=== PATIENT | female | born 1975 | race Caucasian/White ===

== ENCOUNTER 2020-05-19 08:17 | Inpatient (IN) | payer OTHER ==
[~2020-05-19] VITALS: Ht 162.6 cm; Wt 90.7 kg
[~2020-05-19 08:17] MED LIST: ASPI81CH PO; AZIT500 PO; AZO; Bactrim Ds Tab1 EACH PO; CIPR500 PO; CLOP75 PO; DAYQUIL; HYDACE5325 PO; IBUP400; IBUP800 PO; LISI5 PO; METO25 PO; MULVITMINE PO; PHENA200 PO; PROP10 PO; RXHYDACE PO; SIMV40 PO; SULTRIDS PO
[2020-05-19 09:35] LABS: Source, Urine Clean Catch
[2020-05-19 09:43] LABS: BASOPHILS ABSOLUTE AUTO 0.04 K/mm3 (0.00-0.23); BASOPHILS PERCENT AUTO 0 % (0-2); EOSINOPHILS ABSOLUTE AUTO 0.09 K/mm3 (0.00-0.68); EOSINOPHILS PERCENT AUTO 1 % (0-6); Hematocrit 47.8 % (33.0-51.0); Hemoglobin 15.8 g/dL (11.5-16.0); IMMATURE GRAN ABSOLUTE AUTO 0.02 K/mm3 (0.00-0.10); IMMATURE GRAN PERCENT AUTO 0 % (0-1); LYMPHOCYTES ABSOLUTE AUTO 1.08 K/mm3 (0.84-5.20); LYMPHOCYTES PERCENT AUTO 11 % (21-46); MONOCYTES ABSOLUTE AUTO 0.45 K/mm3 (0.16-1.47); MONOCYTES PERCENT AUTO 4 % (4-13); Mean Corpuscular HGB Conc 33.1 g/dL (31.5-36.5); Mean Corpuscular Volume 88 fL (80-100); Mean Platelet Volume 10.4 fL (9.1-12.4); NEUTROPHILS ABSOLUTE AUTO 8.53 K/mm3 (1.96-9.15); NEUTROPHILS PERCENT AUTO 84 % (41-73); Platelet Count 214 K/mm3 (150-400); RDW Coefficient Variation 14.3 % (11.7-14.2); RDW Standard Deviation 45.2 fL (35.1-46.3); Red Blood Cell Count 5.44 M/mm3 (3.80-5.20); White Blood Cell Count 10.21 K/mm3 (4.00-11.30)
[2020-05-19 09:43] LABS: Bilirubin, Urine Neg (Neg); Blood, Urine 4+ (Neg); Glucose Qualitative, Urine Neg (Neg); Ketones, Urine Neg (Neg); Leukocyte Esterase, Urine 3+ (Neg); Nitrite, Urine Pos (Neg); Protein, Urine 3+ (Neg); Specific Gravity, Urine 1.015 (1.003-1.022); Urobilinogen, Urine 1+ (Normal)
[2020-05-19 09:56] LABS: Appearance, Urine Cloudy (Clear); Color, Urine Yellow (P-Yellow)
[2020-05-19 10:01] LABS: Alanine Aminotransfer (ALT/SGP 46 U/L (12-78); Albumin/Globulin Ratio 0.6 (0.8-1.8); Alk Phos 144 U/L (50-136); Anion Gap 4 mmol/L (6-16); Aspartate Aminotrans (AST/SGOT 28 U/L (12-37); Bilirubin, Total 0.8 mg/dL (0.1-1.0); Blood Urea Nitrogen 11 mg/dL (8-24); Bun/Creatinine Ratio 14.4 (12.0-20.0); CO2, Blood 27 mmol/L (21-32); Calcium, Blood 8.5 mg/dL (8.5-10.1); Chloride, Blood 104 mmol/L (98-108); Creatinine, Blood 0.76 mg/dL (0.40-1.00); Globulin, Blood 4.8 g/dL (2.2-4.0); Glomerular Filtration Rate >60 (60-); Glucose, Blood 115 mg/dL (70-99); Potassium, Blood 3.4 mmol/L (3.5-5.5); Sodium, Blood 135 mmol/L (136-145); Total Protein, Blood 7.8 g/dL (6.4-8.2)
[2020-05-19 10:04] LABS: White Blood Cells, Urine 50-100 /hpf (0-5)
[2020-05-19 10:08] LABS: Bacteria Many /hpf; Squamous Epithelial Cells Few /hpf (Few)
--- NOTE | 2020-05-19 18:23 | NUR ---
SHIFT SUMMARY PATIENT ARRIVED TO THE FLOOR MID-AFTERNOON. PATIENT REPORTS LESSENING OF HER HEADACHE UPON ADMISSION. PATIENT REPORTS SHE IS NOT HAVING PAIN IN HER BACK/KIDNEYS AT THIS TIME. PATIENT BP AND TEMPERATURE WITHIN NORMAL LIMITS AFTER ADMISSION. PATIENT A/O, INDEPENDENT IN THE ROOM. PATIENT ORIENTED TO THE ROOM AND ADMISSION COMPLETED. PATIENT NAPPED THROUGH THE AFTERNOON. PATIENT CURRENTLY SITTING UP EATING DINNER.
[2020-05-20 05:14] LABS: BASOPHILS ABSOLUTE AUTO 0.03 K/mm3 (0.00-0.23); BASOPHILS PERCENT AUTO 0 % (0-2); EOSINOPHILS PERCENT AUTO 2 % (0-6); Hematocrit 39.5 % (33.0-51.0); Hemoglobin 12.6 g/dL (11.5-16.0); IMMATURE GRAN ABSOLUTE AUTO 0.02 K/mm3 (0.00-0.10); IMMATURE GRAN PERCENT AUTO 0 % (0-1); LYMPHOCYTES ABSOLUTE AUTO 1.23 K/mm3 (0.84-5.20); LYMPHOCYTES PERCENT AUTO 14 % (21-46); MONOCYTES ABSOLUTE AUTO 0.65 K/mm3 (0.16-1.47); MONOCYTES PERCENT AUTO 7 % (4-13); Mean Corpuscular HGB 28.3 pg (26.0-34.0); Mean Corpuscular HGB Conc 31.9 g/dL (31.5-36.5); Mean Corpuscular Volume 89 fL (80-100); Mean Platelet Volume 10.9 fL (9.1-12.4); NEUTROPHILS ABSOLUTE AUTO 6.64 K/mm3 (1.96-9.15); NEUTROPHILS PERCENT AUTO 76 % (41-73); Platelet Count 177 K/mm3 (150-400); RDW Coefficient Variation 14.3 % (11.7-14.2); RDW Standard Deviation 46.5 fL (35.1-46.3); Red Blood Cell Count 4.46 M/mm3 (3.80-5.20); White Blood Cell Count 8.77 K/mm3 (4.00-11.30)
[2020-05-20 05:36] LABS: Anion Gap 7 mmol/L (6-16); Blood Urea Nitrogen 15 mg/dL (8-24); Bun/Creatinine Ratio 18.2 (12.0-20.0); CO2, Blood 25 mmol/L (21-32); Calcium, Blood 8.5 mg/dL (8.5-10.1); Chloride, Blood 108 mmol/L (98-108); Creatinine, Blood 0.83 mg/dL (0.40-1.00); Glomerular Filtration Rate >60 (60-); Glucose, Blood 147 mg/dL (70-99); Potassium, Blood 3.3 mmol/L (3.5-5.5); Sodium, Blood 140 mmol/L (136-145)
--- NOTE | 2020-05-20 07:37 | NUR ---
called dr young and informed of bp 174/111 and hr 111. he ordered po metoprolol. tm
--- NOTE | 2020-05-20 07:49 | NUR ---
05/20/20 0545 PT SLEPT ON AND OFF. MEDICATED FOR FLANK AND HEAD DISCOMFORT EARLIER. HEART MONITOR SHOWS ST IN THE LOW 100'S. BP ELEVATED SINCE ADMIT AND RN INFORMED CORPORATE DEVELOPMENT ASSOCIATE MD. NEW ANTI-HYPERTENSIVE MED STARTED. BLOOD CULTURES POSITIVE AND MD NOTIFIED WELL. SEE ORDERS FOR IV ANTIBIOTIC. SEE MAR FOR MEDS GIVEN.
--- NOTE | 2020-05-20 15:02 | NUR ---
ATTEMPTED TO CALL DR MARCANO REGARDING PT'S BP, LEFT MESSAGE FOR HIM TO CALL ME
--- NOTE | 2020-05-20 18:20 | NUR ---
CALLED DR MARCANO OF BP OF 175/115 AND TEMP OF 100.5. HE WANTS TO HOLD OFF ON ADDING MORE BP MEDS AT THE MOMENT AND JUST MONITOR
--- NOTE | 2020-05-20 18:30 | NUR ---
SHIFT SUMMARY SHYAM COMPLAINED OF A HEADACHE AND GOT TYLENOL. LOW GRADE FEVER OF 100.5 AND HIGH BP OF 175-[address] MARCANO AWARE, BP MEDS ADDED (SEE PREVIOUS NOTE). VISITED. INDEP TO BR, URINE CLOUDY. CALL LIGHT IN REACH, WCTM
[2020-05-21 05:40] LABS: BASOPHILS ABSOLUTE AUTO 0.04 K/mm3 (0.00-0.23); BASOPHILS PERCENT AUTO 1 % (0-2); EOSINOPHILS ABSOLUTE AUTO 0.21 K/mm3 (0.00-0.68); EOSINOPHILS PERCENT AUTO 2 % (0-6); Hematocrit 36.9 % (33.0-51.0); Hemoglobin 12.1 g/dL (11.5-16.0); IMMATURE GRAN ABSOLUTE AUTO 0.03 K/mm3 (0.00-0.10); IMMATURE GRAN PERCENT AUTO 0 % (0-1); LYMPHOCYTES ABSOLUTE AUTO 1.84 K/mm3 (0.84-5.20); LYMPHOCYTES PERCENT AUTO 21 % (21-46); MONOCYTES ABSOLUTE AUTO 0.67 K/mm3 (0.16-1.47); MONOCYTES PERCENT AUTO 8 % (4-13); Mean Corpuscular HGB 28.5 pg (26.0-34.0); Mean Corpuscular HGB Conc 32.8 g/dL (31.5-36.5); Mean Corpuscular Volume 87 fL (80-100); Mean Platelet Volume 11.3 fL (9.1-12.4); NEUTROPHILS ABSOLUTE AUTO 5.96 K/mm3 (1.96-9.15); NEUTROPHILS PERCENT AUTO 68 % (41-73); Platelet Count 205 K/mm3 (150-400); RDW Coefficient Variation 14.5 % (11.7-14.2); RDW Standard Deviation 46.6 fL (35.1-46.3); Red Blood Cell Count 4.24 M/mm3 (3.80-5.20); White Blood Cell Count 8.75 K/mm3 (4.00-11.30)
[2020-05-21 06:23] LABS: Anion Gap 10 mmol/L (6-16); Blood Urea Nitrogen 16 mg/dL (8-24); Bun/Creatinine Ratio 20.6 (12.0-20.0); CO2, Blood 23 mmol/L (21-32); Calcium, Blood 7.9 mg/dL (8.5-10.1); Chloride, Blood 106 mmol/L (98-108); Creatinine, Blood 0.78 mg/dL (0.40-1.00); Glomerular Filtration Rate >60 (60-); Glucose, Blood 137 mg/dL (70-99); Potassium, Blood 3.3 mmol/L (3.5-5.5); Sodium, Blood 139 mmol/L (136-145)
--- NOTE | 2020-05-21 07:33 | NUR ---
05/21/20 0645 PT SLEPT BETTER AFTER SLEEPER MED WAS ORDERED. PT STILL HAVING ELEVATED BP. GENERALLY SHE IS "FEELING BETTER" THAN WHEN ADMITTED. IV ANTIBIOTICS IN EFFECT.
--- NOTE | 2020-05-21 17:44 | NUR ---
SPOKE TO DR MARCANO ABOUT SPB AT 184, HE WANTS TO JUST [id number] IT FOR NOW
--- NOTE | 2020-05-21 19:10 | NUR ---
SHIFT SUMMARY SHYAM DENIED PAIN THIS SHIFT. BP HIGH, DR MARCANO AWARE (SEE PREVIOUS NOTE). INDEP IN ROOM. NO COMPLAINTS, CALL LIGHT IN REACH, WCTM
[2020-05-22 06:14] LABS: Anion Gap 8 mmol/L (6-16); Blood Urea Nitrogen 21 mg/dL (8-24); Bun/Creatinine Ratio 25.6 (12.0-20.0); CO2, Blood 27 mmol/L (21-32); Calcium, Blood 8.7 mg/dL (8.5-10.1); Chloride, Blood 108 mmol/L (98-108); Creatinine, Blood 0.82 mg/dL (0.40-1.00); Glomerular Filtration Rate >60 (60-); Glucose, Blood 166 mg/dL (70-99); Potassium, Blood 3.7 mmol/L (3.5-5.5); Sodium, Blood 143 mmol/L (136-145)
--- NOTE | 2020-05-22 06:38 | NUR ---
SHIFT SUMMARY: BP 156/94, AND 168/99. PT DENIES PAIN. NO CP, NO SOB. INDEPENDENT IN ROOM. NO DYSURIA. AFEB. A/OX4. COMMUNICATES NEEDS. NO ACUTE CHANGES OVERNIGHT. WCTM.
[2020-05-22] MEDS ORDERED: LISI20 PO (08:50)
[2020-05-22] MEDS ORDERED: VISBIOME 112.51 EACH PO (08:50)
[2020-05-22] MEDS ORDERED: METO50ER PO (08:51)
[2020-05-22] MEDS ORDERED: CEFU500T30 PO (08:51)
[2020-05-22] MEDS ORDERED: HYDCHL12.5 PO (08:51)
--- NOTE | 2020-05-22 09:16 | NUR ---
DC INSTRUCTIONS REVIEWED WITH PT- PT VERB UNDERSTANING OF DC INSTRUCTIONS, FOLLOW UP, AND MEDS. NEW RX FAXED TO [facility]. PT WAITING FOR TO ARRIVE FOR RIDE HOME.
--- NOTE | 2020-05-22 09:45 | NUR ---
DISCHARGE NOTE PT IS AOX4. ARRIVED TO PICK PT UP IN PERSONAL VEHICLE. DC INSTRUCTIONS AND MEDICATIONS REVIEWED WITH PT BY SCREENING TECHNICIAN AND PT VERBALIZED UNDERSTANDING. PT IV REMOVED BY SCREENING TECHNICIAN. PT DRESSED SELF IN HOME CLOTHING. PT WALKED OFF THE UNIT WITH EARTH MOVING TECHNICIAN AT APPROXIMATELY 0930 WITH EARTH MOVING TECHNICIAN AND HAS LEFT THE BUILDING WITH BELONGINGS IN PLACE.
== END 2020-05-22 09:41 | disposition home or self-care (01) | DRG 872 ==
LOC: ER 08:17 → MEDS 11:35
PROVIDERS: Emergency Medicine; Internal Medicine; ADMIT Family Medicine
DX: A41.51 Sepsis due to Escherichia coli [E. coli] (principal); E87.1 Hypo-osmolality and hyponatremia; N10 Acute pyelonephritis; E66.01 Morbid (severe) obesity due to excess calories; E87.6 Hypokalemia; F17.210 Nicotine dependence, cigarettes, uncomplicated; I10 Essential (primary) hypertension; I25.10 Atherosclerotic heart disease of native coronary artery without angina pectoris; N20.0 Calculus of kidney; Z95.5 Presence of coronary angioplasty implant and graft; Z20.822 Contact with and (suspected) exposure to COVID-19; Z68.34 Body mass index [BMI] 34.0-34.9, adult; Z91.14 Patient's other noncompliance with medication regimen
CPT/HCPCS: 36415; 71045; 74176; 80048; 80053; 81001; 83605; 85025; 87040; 87077; 87086; 87186; 93005; 93010; 96361; 96365; 96375; 99285-25; A9270; J0696; J1650; J1885; J2405; J3010; J7030; J7050; J7120; Q2038

== ENCOUNTER 2020-11-12 19:00 | Observation (INO) | payer OTHER ==
[~2020-11-12] VITALS: Ht 165.1 cm; Wt 90.7 kg
[~2020-11-12 19:00] MED LIST changes: +CEFU500T30 PO; +HYDCHL12.5 PO; +LISI20 PO; +METO50ER PO; +VISBIOME 112.51 EACH PO
[2020-11-12 19:25] LABS: BASOPHILS ABSOLUTE AUTO 0.05 K/mm3 (0.00-0.23); BASOPHILS PERCENT AUTO 0 % (0-2); EOSINOPHILS ABSOLUTE AUTO 0.21 K/mm3 (0.00-0.68); EOSINOPHILS PERCENT AUTO 1 % (0-6); Hemoglobin 14.3 g/dL (11.5-16.0); IMMATURE GRAN ABSOLUTE AUTO 0.06 K/mm3 (0.00-0.10); IMMATURE GRAN PERCENT AUTO 0 % (0-1); LYMPHOCYTES ABSOLUTE AUTO 2.01 K/mm3 (0.84-5.20); LYMPHOCYTES PERCENT AUTO 12 % (21-46); MONOCYTES ABSOLUTE AUTO 0.84 K/mm3 (0.16-1.47); MONOCYTES PERCENT AUTO 5 % (4-13); Mean Corpuscular HGB 29.2 pg (26.0-34.0); Mean Corpuscular HGB Conc 33.3 g/dL (31.5-36.5); Mean Corpuscular Volume 88 fL (80-100); Mean Platelet Volume 10.2 fL (9.1-12.4); NEUTROPHILS ABSOLUTE AUTO 13.17 K/mm3 (1.96-9.15); NEUTROPHILS PERCENT AUTO 81 % (41-73); Platelet Count 351 K/mm3 (150-400); RDW Standard Deviation 48.3 fL (35.1-46.3); White Blood Cell Count 16.34 K/mm3 (4.00-11.30)
[2020-11-12 20:00] LABS: Alanine Aminotransfer (ALT/SGP 38 U/L (12-78); Albumin, Blood 3.2 g/dL (3.4-5.0); Albumin/Globulin Ratio 0.8 (0.8-1.8); Alk Phos 102 U/L (50-136); Anion Gap 3 mmol/L (6-16); Aspartate Aminotrans (AST/SGOT 31 U/L (12-37); Bilirubin, Total 0.5 mg/dL (0.1-1.0); Blood Urea Nitrogen 15 mg/dL (8-24); Bun/Creatinine Ratio 17.3 (12.0-20.0); CO2, Blood 28 mmol/L (21-32); Calcium, Blood 8.7 mg/dL (8.5-10.1); Chloride, Blood 108 mmol/L (98-108); Creatinine, Blood 0.87 mg/dL (0.40-1.00); Glomerular Filtration Rate >60 (60-); Glucose, Blood 130 mg/dL (70-99); Potassium, Blood 3.7 mmol/L (3.5-5.5); Sodium, Blood 139 mmol/L (136-145); Total Protein, Blood 7.2 g/dL (6.4-8.2)
[2020-11-12 21:30] LABS: CHOL/HDL RATIO 3.3; Cholesterol 175 mg/dL (50-200); HDL Cholesterol 53 mg/dL (>39); Low Density Lipoprotein Chol 107 mg/dL (0-110); Triglycerides 77 mg/dL (30-160); Very Low Density Lipoprot Chol 15 mg/dL (6-32)
[2020-11-13 07:34] LABS: BASOPHILS ABSOLUTE AUTO 0.05 K/mm3 (0.00-0.23); BASOPHILS PERCENT AUTO 0 % (0-2); EOSINOPHILS ABSOLUTE AUTO 0.16 K/mm3 (0.00-0.68); EOSINOPHILS PERCENT AUTO 1 % (0-6); Hematocrit 40.5 % (33.0-51.0); Hemoglobin 13.3 g/dL (11.5-16.0); IMMATURE GRAN ABSOLUTE AUTO 0.02 K/mm3 (0.00-0.10); IMMATURE GRAN PERCENT AUTO 0 % (0-1); LYMPHOCYTES ABSOLUTE AUTO 1.86 K/mm3 (0.84-5.20); LYMPHOCYTES PERCENT AUTO 16 % (21-46); MONOCYTES ABSOLUTE AUTO 0.71 K/mm3 (0.16-1.47); MONOCYTES PERCENT AUTO 6 % (4-13); Mean Corpuscular HGB 29.1 pg (26.0-34.0); Mean Corpuscular HGB Conc 32.8 g/dL (31.5-36.5); Mean Corpuscular Volume 89 fL (80-100); Mean Platelet Volume 10.3 fL (9.1-12.4); NEUTROPHILS ABSOLUTE AUTO 8.56 K/mm3 (1.96-9.15); NEUTROPHILS PERCENT AUTO 75 % (41-73); Platelet Count 313 K/mm3 (150-400); RDW Standard Deviation 49.1 fL (35.1-46.3); Red Blood Cell Count 4.57 M/mm3 (3.80-5.20); White Blood Cell Count 11.36 K/mm3 (4.00-11.30)
[2020-11-13 07:53] LABS: Anion Gap 6 mmol/L (6-16); Blood Urea Nitrogen 14 mg/dL (8-24); Bun/Creatinine Ratio 19.3 (12.0-20.0); CO2, Blood 24 mmol/L (21-32); Calcium, Blood 8.1 mg/dL (8.5-10.1); Chloride, Blood 109 mmol/L (98-108); Creatinine, Blood 0.73 mg/dL (0.40-1.00); Glomerular Filtration Rate >60 (60-); Glucose, Blood 102 mg/dL (70-99); Potassium, Blood 3.4 mmol/L (3.5-5.5); Sodium, Blood 139 mmol/L (136-145)
--- NOTE | 2020-11-13 13:57 | NUR ---
PT ARRIVED TO UNIT FROM ED TRANSFERRED INDEPENDENTLY TO BED FROM [facility]. DENIED PAIN, SOB OR N/V. TELE PLACED, READING SR. ADMIT ASSESSMENT COMPLETED. CALL LIGHT IN REACH.
--- NOTE | 2020-11-13 18:02 | NUR ---
SUMMARY NO ACUTE CHANGES SINCE ARRIVING TO FLOOR. INDEPENDENT IN ROOM. PT HAS DENIED CP, N/V OR SOB SINCE ARRIVAL TO UNIT. TELE IN PLACE. ADMINISTERED MEDS PER ORDERS. CALL LIGHT IN REACH. PT PLEASANT AND COOPERATIVE.
[2020-11-13] MEDS ORDERED: LISI20 PO (21:46)
[2020-11-13] MEDS ORDERED: CEFU250T47 PO (21:47)
[2020-11-13] MEDS ORDERED: METO50ER PO (21:48)
[2020-11-13] MEDS ORDERED: HYDCHL25 PO (21:48)
--- NOTE | 2020-11-14 05:21 | NUR ---
SHIFT SUMMARY ASSUMED CARE OF PT AT 1900. PT IS A/OX4. HEART SOUNDS REGULAR, TELE SHOWS SINUS RYTHMN. LUNG SOUNDS CLEAR. PT BLOOD PRESSURE IS STABLE T/O THE NIGHT. PT HAS NO NEW COMPLAINTS. CALL LIGHT IN REACH, BED IN LOWEST POSTION.
--- NOTE | 2020-11-14 09:22 | NUR ---
PT ALERT AND ORIENTED X4. ON ROOM AIR SATING ABOVE 94%. DENIES SOB. LUNGS SOUNDING CLEAR. TELE SHOWING SINUS WITH HR 80'S. BP STABLE. BOWEL TONES PRESENT. PPP. DENIES PAIN. ANXIOUS TO GET HOME. TAKING PILLS WHOLE WITH WATER. ATE A GOOD BREAKFAST. DENIES NEEDS AT THIS TIME. WILL CONTINUE TO MONITOR.
[2020-11-14] MEDS ORDERED: AMLO10 PO (10:52)
[2020-11-14] MEDS ORDERED: ASPI81CH PO (10:53)
[2020-11-14] MEDS ORDERED: POTA10T PO (11:13)
--- NOTE | 2020-11-14 11:40 | NUR ---
DISCHARGE: NO ACUTE CHANGES. VITAL SIGNS STABLE. DISCHARGE INSTRUCTIONS REVIEWED, QUESTIONS ANSWERED, AND MEDICATIONS CALLED INTO [facility] IN [place]. DISCHARGE WNL. IV TAKEN OUT PER PROTOCOL. IN TO ASSOCIATE PROFESSOR OF MATHEMATICS PATIENT. PT HAS ALL PERSONAL BELONGINGS.
== END 2020-11-14 11:45 | disposition home or self-care (01) ==
LOC: ER 19:00 → PCU 19:01 → ER 21:31 → ERHOLD 21:31 → PCU 21:51 → ERHOLD 21:51 → PCU 11-13 12:34 → ERHOLD 11-13 12:34 → PCU 11-13 17:00
PROVIDERS: Physician Assistant; ADMIT Family Medicine
DX: I16.1 Hypertensive emergency (principal); I16.0 Hypertensive urgency; R07.9 Chest pain, unspecified; R79.89 Other specified abnormal findings of blood chemistry; I25.2 Old myocardial infarction; F17.210 Nicotine dependence, cigarettes, uncomplicated; R00.0 Tachycardia, unspecified; I25.10 Atherosclerotic heart disease of native coronary artery without angina pectoris; D72.829 Elevated white blood cell count, unspecified; R79.1 Abnormal coagulation profile; E87.6 Hypokalemia; I34.0 Nonrheumatic mitral (valve) insufficiency; I11.0 Hypertensive heart disease with heart failure; I50.32 Chronic diastolic (congestive) heart failure; F31.9 Bipolar disorder, unspecified; E66.9 Obesity, unspecified; J43.9 Emphysema, unspecified; Z88.0 Allergy status to penicillin; Z88.1 Allergy status to other antibiotic agents; Z95.5 Presence of coronary angioplasty implant and graft; Z91.14 Patient's other noncompliance with medication regimen
CPT/HCPCS: 36415; 71046; 71260; 80048; 80053; 80061; 83690; 84443; 84484; 85025; 85379; 93005; 93010; 93306; 99285-25; A9270; G0378; Q9967

== ENCOUNTER 2022-03-13 10:03 | Inpatient (IN) | payer OTHER ==
[~2022-03-13] VITALS: Ht 165.1 cm; Wt 99.3 kg
[~2022-03-13 10:03] MED LIST changes: +AMLO10 PO; +CEFU250T47 PO; +HYDCHL25 PO; +POTA10T PO
[2022-03-13 11:05] LABS: BASOPHILS ABSOLUTE AUTO 0.03 K/mm3 (0.00-0.23); BASOPHILS PERCENT AUTO 0 % (0-2); EOSINOPHILS ABSOLUTE AUTO 0.05 K/mm3 (0.00-0.68); EOSINOPHILS PERCENT AUTO 1 % (0-6); Hematocrit 50.3 % (33.0-51.0); Hemoglobin 15.8 g/dL (11.5-16.0); IMMATURE GRAN ABSOLUTE AUTO 0.03 K/mm3 (0.00-0.10); IMMATURE GRAN PERCENT AUTO 0 % (0-1); LYMPHOCYTES PERCENT AUTO 4 % (21-46); MONOCYTES ABSOLUTE AUTO 0.52 K/mm3 (0.16-1.47); MONOCYTES PERCENT AUTO 5 % (4-13); Mean Corpuscular HGB 24.6 pg (26.0-34.0); Mean Corpuscular HGB Conc 31.4 g/dL (31.5-36.5); Mean Corpuscular Volume 79 fL (80-100); NEUTROPHILS ABSOLUTE AUTO 8.96 K/mm3 (1.96-9.15); NEUTROPHILS PERCENT AUTO 90 % (41-73); RDW Coefficient Variation 20.3 % (11.7-14.2); RDW Standard Deviation 55.4 fL (35.1-46.3); Red Blood Cell Count 6.41 M/mm3 (3.80-5.20); White Blood Cell Count 9.99 K/mm3 (4.00-11.30)
[2022-03-13 11:18] LABS: Mean Platelet Volume 10.5 fL (9.1-12.4)
[2022-03-13 11:39] LABS: Platelet Count 236 K/mm3 (150-400)
[2022-03-13 11:47] LABS: Albumin, Blood 3.3 g/dL (3.4-5.0); Albumin/Globulin Ratio 0.7 (0.8-1.8); Bilirubin, Total 1.2 mg/dL (0.1-1.0); Bun/Creatinine Ratio 20.6 (12.0-20.0); Calcium, Blood 8.9 mg/dL (8.5-10.1); Creatinine, Blood 1.02 mg/dL (0.40-1.00); Globulin, Blood 4.7 g/dL (2.2-4.0); Potassium, Blood 4.1 mmol/L (3.5-5.5)
[2022-03-13 12:07] LABS: International Normalized Ratio 1.13; Prothrombin Time Results 11.8 Sec (9.7-11.5)
[2022-03-13 12:08] LABS: Influenza B, PCR NEGATIVE (NEGATIVE); Resp Syncytial Virus, PCR NEGATIVE (NEGATIVE)
[2022-03-13 12:23] LABS: Influenza A, PCR POSITIVE (NEGATIVE); SARS-Cov-2 (COVID-19) PCR, MMC POSITIVE (NEGATIVE)
[2022-03-13 15:01] LABS: PCO2 Arterial 39.8 mmHg (35-45); pH Blood Arterial 7.42 (7.35-7.45)
[2022-03-14 04:45] LABS: Hematocrit 43.5 % (33.0-51.0); Mean Corpuscular HGB 24.9 pg (26.0-34.0); Mean Corpuscular HGB Conc 32.2 g/dL (31.5-36.5); Mean Corpuscular Volume 77 fL (80-100); Platelet Count 214 K/mm3 (150-400); RDW Coefficient Variation 19.8 % (11.7-14.2); RDW Standard Deviation 54.4 fL (35.1-46.3); Red Blood Cell Count 5.63 M/mm3 (3.80-5.20); White Blood Cell Count 6.76 K/mm3 (4.00-11.30)
[2022-03-14 04:47] LABS: Mean Platelet Volume 10.8 fL (9.1-12.4)
[2022-03-14 04:57] LABS: Albumin, Blood 2.9 g/dL (3.4-5.0); Anion Gap 9 mmol/L (6-16); Blood Urea Nitrogen 25 mg/dL (8-24); Bun/Creatinine Ratio 21.2 (12.0-20.0); CO2, Blood 24 mmol/L (21-32); Calcium, Blood 8.5 mg/dL (8.5-10.1); Chloride, Blood 104 mmol/L (98-108); Creatinine, Blood 1.18 mg/dL (0.40-1.00); Glomerular Filtration Rate 58 (60-); Glucose, Blood 122 mg/dL (70-99); Phosphorus, Blood 4.2 mg/dL (2.5-4.9); Potassium, Blood 3.7 mmol/L (3.5-5.5); Sodium, Blood 137 mmol/L (136-145)
--- NOTE | 2022-03-14 05:12 | NUR ---
PT WAS "ACHING AND MISERABLE" THE FIRST HALF OF THE SHIFT, DESATTING FREQUENTLY AND HER HTN WAS DIFFICULT TO CONTROL REQUIRING 2 PRN DOSES OF HYDRALAZINE, SHE REMAINED SR/ST AND WAS AFEBRILE THROUGHOUT SHIFT, SHE EVENTUALLY SLEPT APPROX 3 HRS CONTINUOUSLY AND WOKE UP THIS MORNING IN BETTER SPIRITS AND HUNGRY WELL, HEPARIN GTT WAS INITIATED BY DR LEO AFTER REPORTING INCREASED TROPONIN, 0420 LEVEL IS STILL PENDING AT THIS WRITING, UO WAS ADEQUATE AND PT REMAINED ON 3 LPM NC, PT STILL DYSPNEIC AT REST WITH COARSE, WET LUNG SOUNDS BILATERALLY, CALL LIGHT IN REACH, BED IN LOWEST POSITION, PT DENIES NEEDS AT PRESENT
--- NOTE | 2022-03-14 18:23 | NUR ---
SHIFT SUMMARY: PT LETHARGIC, NAPPING OFTEN T/OUT SHIFT, ORIENTED x4, AFEBRILE. O2 SATS >92% ON 2-4 L/MIN NC. SR/ST ON MONITOR, RATE CURRENTLY 80s-90s, HEPARIN INFUSING PER ORDERS W/NO RATE CHANGE TODAY, PT DENIES CHEST PAIN. ECHO COMPLETED AT BEDSIDE TODAY. PT HAS BEEN INDEPENDENT TO BS, USES CALL LIGHT TO MAKE NEEDS KNOWN. AT THIS TIME, PT RESTING QUIETLY IN ROOM W/CALL LIGHT IN REACH. WILL CONTINUE TO MONITOR AND TREAT ACCORDINGLY UNTIL CHANGE OF SHIFT.
[2022-03-15 04:23] LABS: Hematocrit 40.6 % (33.0-51.0); Hemoglobin 13.1 g/dL (11.5-16.0); Mean Corpuscular HGB Conc 32.3 g/dL (31.5-36.5); Mean Corpuscular Volume 78 fL (80-100); Platelet Count 208 K/mm3 (150-400); RDW Coefficient Variation 19.8 % (11.7-14.2); RDW Standard Deviation 54.9 fL (35.1-46.3); Red Blood Cell Count 5.23 M/mm3 (3.80-5.20); White Blood Cell Count 5.92 K/mm3 (4.00-11.30)
[2022-03-15 04:30] LABS: Mean Platelet Volume 10.3 fL (9.1-12.4)
[2022-03-15 04:40] LABS: Albumin, Blood 2.5 g/dL (3.4-5.0); Anion Gap 7 mmol/L (6-16); Blood Urea Nitrogen 38 mg/dL (8-24); Bun/Creatinine Ratio 30.6 (12.0-20.0); CHOL/HDL RATIO 2.7; CO2, Blood 28 mmol/L (21-32); Chloride, Blood 105 mmol/L (98-108); Cholesterol 97 mg/dL (50-200); Creatinine, Blood 1.24 mg/dL (0.40-1.00); Glomerular Filtration Rate 54 (60-); Glucose, Blood 127 mg/dL (70-99); HDL Cholesterol 36 mg/dL (>39); LDL/HDL RATIO 1.3; Low Density Lipoprotein Chol 46 mg/dL (0-110); Phosphorus, Blood 4.5 mg/dL (2.5-4.9); Potassium, Blood 3.4 mmol/L (3.5-5.5); Sodium, Blood 140 mmol/L (136-145); Triglycerides 77 mg/dL (30-160); Very Low Density Lipoprot Chol 15 mg/dL (6-32)
--- NOTE | 2022-03-15 06:07 | NUR ---
SHIFT SUMMARY PT HAS SOME EPISODES IN NIGHT WHERE CANNULA COMES AWAY FROM HER MOUTH WHILE SHE SLEEPS AND SATS DOWN INTO 80'S. SATS BACK UP TO LOW TO MID 90'S WITH STAFF AT BEDSIDE TO ADJUST CANNULA OR ALERT PT. PT AOX3 ALTHOUGH DROWSY. UP INDEPENDENTLY TO BEDSIDE COMMODE. DYSPNEIC WITH EXERTION. DENIES CP. STATES BREATHING IS FEELING BETTER DESPITE OBSERVED DYSPNEA AND TACHYPNEA. HEPARIN GTT CONTINUES AT 22.2 MLS/HR.
--- NOTE | 2022-03-15 17:25 | NUR ---
SHIFT SUMMARY: PT REPORTS CONTINUED IMPROVEMENT TO SYMPTOMS T/OUT SHIFT, ALSO MORE ALERT TODAY W/ A COUPLE SHORT NAPS. O2 FLOW TITRATED FROM 4L TO 1.5 L/MIN NC, O2 SATS MAINTAINED >92%, OCCASIONAL NONPRODUCTIVE COUGH, PT DENIES SOB. HEPARIN INFUSION DC'd PER ORDERS, SR ON MONITOR W/RATE 70s-80s. PT CONTINUES INDEPENDENT IN ROOM, CALLS APPOPRIATELY. PT RESTING QUIETLY IN ROOM W/DINNER TRAY, CALL LIGHT IN REACH. WILL CONTINUE TO MONITOR AND TREAT ACCORDINGLY UNTIL CHANGE OF SHIFT.
[2022-03-16 05:04] LABS: Albumin, Blood 2.6 g/dL (3.4-5.0); Anion Gap 6 mmol/L (6-16); Blood Urea Nitrogen 39 mg/dL (8-24); Bun/Creatinine Ratio 30.5 (12.0-20.0); CO2, Blood 29 mmol/L (21-32); Calcium, Blood 8.3 mg/dL (8.5-10.1); Chloride, Blood 106 mmol/L (98-108); Creatinine, Blood 1.28 mg/dL (0.40-1.00); Glomerular Filtration Rate 52 (60-); Glucose, Blood 103 mg/dL (70-99); Phosphorus, Blood 4.5 mg/dL (2.5-4.9); Potassium, Blood 3.7 mmol/L (3.5-5.5); Sodium, Blood 141 mmol/L (136-145)
--- NOTE | 2022-03-16 06:43 | NUR ---
PT FREQUENTLY AWAKE THROUGHOUT NOC. OXYGEN WAS TITRATED DOWN TO 1 L/MIN VIA NASAL CANNULA AND PT TOLERATED WELL, SATS MAINTAINING MID 90S OF THIS TIME. SHE IS UP IND IN ROOM AND DOES REPORT DYSPNEA ON EXERTION HOWEVER RECOVERS QUICKLY WITH RETURN TO REST. SHE IS HOPEFUL FOR DISCHARGE TO HOME SOON. NO ACUTE CHANGES THIS SHIFT.
[2022-03-16] MEDS ORDERED: ALBU2.5V5 INH (13:24)
[2022-03-16] MEDS ORDERED: ACET325 PO (13:24)
[2022-03-16] MEDS ORDERED: ATOR10 PO (13:25)
[2022-03-16] MEDS ORDERED: LISI5 PO (13:26)
[2022-03-16] MEDS ORDERED: GUAI600T33 PO (13:26)
[2022-03-16] MEDS ORDERED: METO50ER PO (13:27)
[2022-03-16] MEDS ORDERED: NASAL SPRAY88 ML (13:29)
[2022-03-16] MEDS ORDERED: Ventolin/Prove6.7 GM INH (13:30)
[2022-03-16] MEDS ORDERED: FURO20 PO (13:31)
[2022-03-16] MEDS ORDERED: OSEL75CA PO (13:38)
--- NOTE | 2022-03-16 14:15 | NUR ---
PT A&O X4. PT APPEARS ANXIOUS WHEN CONVERSING AND ABOUT BEINGIN HOSPITAL. STATES THAT SHE NEEDS TO BE HOME FOR HER KIDS AND FOR GETTING THEM TO SCHOOL. PT ABLE TO BE CALMED WITH CONVERSATION AND ENCOURAGEMENT. ALTHOUGH ANXIOUS, PT COOPERATIVE WITH CARE AND PLEASANT. 02 SAT >94% ON RA. DENIES SOB. DENIES CHEST PAIN OR PRESSURE. NO DYSPNEA NOTED BY THIS RN. PT HYPERTENSIVE WITH MORNING VITALS. PROVIDER AWARE AND NEW ORDERS PER EMAR. AFTER MEDICATION ADMINSTRATION, BP STABLE. SEE VS NOTES. NO ACUTE CHANGES THROUGHOUT SHIFT
--- NOTE | 2022-03-16 14:19 | NUR ---
DISCHARGE PT DISCHARGED PER PROVIDER ORDER. DISCHARGE INSTRUCTIONS COMPLETED WITH PT AND SPOUSE AT BEDSIDE. PT AND SPOUSE VERBALIZED UNDERSTANDING. IV REMOVED; SITE WITHOUT REDNESS, SWELLING, PT STATES IT IS MILDLY TENDER FROM BRUISING. PT LEFT WITH , AMBULATING INDEPENDENTLY. HOME O2 EVAL COMPLETED BEFORE DISCHARGE. BELONGINGS SENT WITH PT AND .
== END 2022-03-16 14:10 | disposition home or self-care (01) | DRG 177 ==
LOC: ER 10:03 → ERHOLD 10:04 → PCU 10:04 → ERHOLD 10:04 → PCU 17:45
PROVIDERS: Emergency Medicine; Internal Medicine Hematology & Oncology; ADMIT Internal Medicine
PROC: 8E0ZXY6 Isolation (ICD-10-PCS; principal; 2022-03-13)
DX: U07.1 COVID-19 (principal); I21.A1 Myocardial infarction type 2; I50.33 Acute on chronic diastolic (congestive) heart failure; J96.01 Acute respiratory failure with hypoxia; I11.0 Hypertensive heart disease with heart failure; J10.1 Influenza due to other identified influenza virus with other respiratory manifestations; I27.20 Pulmonary hypertension, unspecified; I16.0 Hypertensive urgency; I25.2 Old myocardial infarction; I25.10 Atherosclerotic heart disease of native coronary artery without angina pectoris; Z95.5 Presence of coronary angioplasty implant and graft; F31.9 Bipolar disorder, unspecified; Z91.14 Patient's other noncompliance with medication regimen; Z98.51 Tubal ligation status; Z98.890 Other specified postprocedural states; Z88.0 Allergy status to penicillin; Z88.1 Allergy status to other antibiotic agents; Z87.891 Personal history of nicotine dependence; E87.6 Hypokalemia; Z28.21 Immunization not carried out because of patient refusal
CPT/HCPCS: 0241U; 36415; 36600; 71045; 71260; 80053; 80061; 80069; 82803; 83605; 83735; 83880; 84145; 84443; 84484; 85025; 85027; 85379; 85520; 85610; 93005; 93010; 93306; 94640; 94660; 94664; 94761; 94762; 96375; 96376; A9270; G0378; J0360; J1644; J1650; J1940; Q9967

== ENCOUNTER → 2022-11-09 | Outpatient (CLI) | payer OTHER ==
[~2022-11-09] MED LIST changes: +ACET325 PO; +ALBU2.5V5 INH; +AMLO5 PO; +ATOR10 PO; +ATOR80 PO; +FURO20 PO; +GUAI600T33 PO; +HYDRA50 PO; +METOPROLOL SUCC25 MG PO; +NASAL SPRAY88 ML; +OSEL75CA PO; +Ventolin/Prove6.7 GM INH
== END ==
LOC: LAB SHORT 08:30 → LAB 08:30
DX: M54.50 Low back pain, unspecified (principal); R82.90 Unspecified abnormal findings in urine
CPT/HCPCS: 87077; 87086; 87186

== ENCOUNTER 2023-03-04 07:31 | Observation (INO) | payer BC, OTHER ==
[2023-03-04] VITALS (8 sets, daily range): BP systolic 108–159; BP diastolic 63–94
[~2023-03-04] VITALS: Ht 162.6 cm; Wt 105.2 kg
[~2023-03-04 07:31] MED LIST changes: +Lopressor 25 mg25 MG PO; -METOPROLOL SUCC25 MG PO
[2023-03-04 08:09] LABS: BASOPHILS ABSOLUTE AUTO 0.05 K/mm3 (0.00-0.23); BASOPHILS PERCENT AUTO 0 % (0-2); EOSINOPHILS ABSOLUTE AUTO 0.11 K/mm3 (0.00-0.68); EOSINOPHILS PERCENT AUTO 1 % (0-6); Hematocrit 51.3 % (33.0-51.0); Hemoglobin 16.3 g/dL (11.5-16.0); IMMATURE GRAN ABSOLUTE AUTO 0.05 K/mm3 (0.00-0.10); IMMATURE GRAN PERCENT AUTO 0 % (0-1); LYMPHOCYTES ABSOLUTE AUTO 1.86 K/mm3 (0.84-5.20); LYMPHOCYTES PERCENT AUTO 16 % (21-46); MONOCYTES ABSOLUTE AUTO 0.56 K/mm3 (0.16-1.47); MONOCYTES PERCENT AUTO 5 % (4-13); Mean Corpuscular HGB 27.4 pg (26.0-34.0); Mean Corpuscular HGB Conc 31.8 g/dL (31.5-36.5); Mean Corpuscular Volume 86 fL (80-100); Mean Platelet Volume 10.4 fL (9.1-12.4); NEUTROPHILS ABSOLUTE AUTO 9.02 K/mm3 (1.96-9.15); NEUTROPHILS PERCENT AUTO 78 % (41-73); Platelet Count 289 K/mm3 (150-400); RDW Coefficient Variation 17.4 % (11.7-14.2); RDW Standard Deviation 51.8 fL (35.1-46.3); Red Blood Cell Count 5.94 M/mm3 (3.80-5.20); White Blood Cell Count 11.65 K/mm3 (4.00-11.30)
[2023-03-04] MEDS ORDERED: ABILIFY5 MG PO (08:19)
[2023-03-04 08:31] LABS: Albumin/Globulin Ratio 0.6 (0.8-1.8); Bilirubin, Total 0.6 mg/dL (0.1-1.0); Calcium, Blood 8.4 mg/dL (8.5-10.1); Creatinine, Blood 1.39 mg/dL (0.40-1.00); Globulin, Blood 4.8 g/dL (2.2-4.0); Magnesium, Blood 2.3 mg/dL (1.6-2.4); Potassium, Blood 4.3 mmol/L (3.5-5.5); Total Protein, Blood 7.8 g/dL (6.4-8.2)
[2023-03-04 10:37] LABS: Anti-Xa UFH, PHA Monitoring <0.10 IU/mL; International Normalized Ratio 1.03; Prothrombin Time Results 10.8 Sec (9.7-11.5)
[2023-03-04 10:44] LABS: CHOL/HDL RATIO 2.1; Cholesterol 105 mg/dL (50-200); HDL Cholesterol 51 mg/dL (>39); LDL/HDL RATIO 0.8; Low Density Lipoprotein Chol 38 mg/dL (0-110); Triglycerides 78 mg/dL (30-160); Very Low Density Lipoprot Chol 15 mg/dL (6-32)
--- NOTE | 2023-03-04 18:25 | NUR ---
SHIFT SUMMARY patient is alert and oriented x4. perrla. patient arrived on the unit at 1206. patient left for angio approx 1435. patient had a stent to mid rca and access site is right radial. two tr bands in place, site above band is firm, no bleeding, swelling. 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 purple coloration has resolved. patient does not wear oxygen at baseline, but has been desatting into low 80s when sleeping. admit complete. see admit assessment for further detials. md leon to see patient in two weeks as an out patient and plan to discharge tomorrow. plan of care is up to date.
--- NOTE | 2023-03-04 18:51 | NUR ---
AIR REMOVAL 10 cc in top right trband. and 11 in bottom right trband. 4cc have been removed from both tr band.
[2023-03-05 04:31] VITALS: BP 154/82
[2023-03-05 04:32] LABS: Bun/Creatinine Ratio 24.8 (12.0-20.0); Calcium, Blood 8.1 mg/dL (8.5-10.1); Creatinine, Blood 1.21 mg/dL (0.40-1.00); Potassium, Blood 5.2 mmol/L (3.5-5.5)
[2023-03-05 04:55] LABS: BASOPHILS ABSOLUTE AUTO 0.05 K/mm3 (0.00-0.23); BASOPHILS PERCENT AUTO 1 % (0-2); EOSINOPHILS ABSOLUTE AUTO 0.12 K/mm3 (0.00-0.68); EOSINOPHILS PERCENT AUTO 2 % (0-6); Hematocrit 46.2 % (33.0-51.0); Hemoglobin 14.4 g/dL (11.5-16.0); IMMATURE GRAN ABSOLUTE AUTO 0.01 K/mm3 (0.00-0.10); IMMATURE GRAN PERCENT AUTO 0 % (0-1); LYMPHOCYTES ABSOLUTE AUTO 1.37 K/mm3 (0.84-5.20); LYMPHOCYTES PERCENT AUTO 17 % (21-46); MONOCYTES ABSOLUTE AUTO 0.62 K/mm3 (0.16-1.47); MONOCYTES PERCENT AUTO 8 % (4-13); Mean Corpuscular HGB 27.4 pg (26.0-34.0); Mean Corpuscular HGB Conc 31.2 g/dL (31.5-36.5); Mean Corpuscular Volume 88 fL (80-100); Mean Platelet Volume 10.5 fL (9.1-12.4); NEUTROPHILS ABSOLUTE AUTO 5.91 K/mm3 (1.96-9.15); NEUTROPHILS PERCENT AUTO 73 % (41-73); Platelet Count 246 K/mm3 (150-400); RDW Coefficient Variation 16.8 % (11.7-14.2); RDW Standard Deviation 53.4 fL (35.1-46.3); Red Blood Cell Count 5.25 M/mm3 (3.80-5.20); White Blood Cell Count 8.08 K/mm3 (4.00-11.30)
--- NOTE | 2023-03-05 05:29 | NUR ---
SHIFT SUMMARY PATIENT ALERT AND ORIENTED x4. BP STABLE, TELE READING SR 90s DURING THE NIGHT, DENIED CHEST PAIN. ON 2L NC WITH SPO2 >95%, DESATS OCCASIONALLY WHILE SLEEPING. TR BANDS RECOVERED, OPSITES IN PLACE, NO DRAINAGE NOTED. SOME FIRMNESS NOTED TO RIGHT FOREARM BUT PATIENT STATES THAT AREA WAS PRESENT BEFORE ANGIO. ARM BOARD IN PLACE. ABLE TO AMBULATE TO BATHROOM INDEPENDENTLY, ADEQUATE OUTPUT. NO OTHER CHANGES, WILL REPORT TO DAY SHIFT RN.
[2023-03-05 09:00] VITALS: BP 155/96
[2023-03-05 12:10] VITALS: BP 145/68
[2023-03-05] MEDS ORDERED: CLOP75 PO (12:30)
[2023-03-05] MEDS ORDERED: METO25ER PO (12:30)
[2023-03-05] MEDS ORDERED: NITR.4SL SL (12:33)
--- NOTE | 2023-03-05 13:29 | NUR ---
DISCHARGE/SHIFT SUMMARY this rn assumed care at 0700. vital signs stable. patient is alert and oriented x4. perrla. patient reports no pain, chest pain, or shortness of breath. see shift assessment for further detials. this rn went over discharge education with patient. this rn went over medications and follow up appointments. patient verbalized understanding. patient left in no distress.
== END 2023-03-05 13:30 | disposition home or self-care (01) ==
LOC: ER 07:31 → PCU 07:32
PROVIDERS: Pharmacist; Student in an Organized Health Care Education/Training Program; ADMIT Internal Medicine
DX: I21.4 Non-ST elevation (NSTEMI) myocardial infarction (principal); I25.10 Atherosclerotic heart disease of native coronary artery without angina pectoris; E78.5 Hyperlipidemia, unspecified; F31.9 Bipolar disorder, unspecified; E66.9 Obesity, unspecified; Z95.5 Presence of coronary angioplasty implant and graft; I25.2 Old myocardial infarction; I50.32 Chronic diastolic (congestive) heart failure; I11.0 Hypertensive heart disease with heart failure; Z95.1 Presence of aortocoronary bypass graft; Z68.37 Body mass index [BMI] 37.0-37.9, adult; Z88.0 Allergy status to penicillin; Z88.1 Allergy status to other antibiotic agents; F17.210 Nicotine dependence, cigarettes, uncomplicated; N17.9 Acute kidney failure, unspecified
CPT/HCPCS: 36415; 36416; 71046; 76937; 80048; 80053; 80061; 83735; 83880; 84443; 84484; 85025; 85347; 85520; 85610; 85730; 93005; 93010; 93306; 93458; 96361; 96365; 96376; 99152; 99153; 99285-25; A9270; C1725; C1769; C1874; C1887; C1894; C9600; G0378; J1644; J2250; J2405; J3010; J3246; J7030; J7050; Q9967

== ENCOUNTER 2025-03-18 10:09 | Emergency (ER) | payer OTHER ==
[~2025-03-18] VITALS: Ht 165.1 cm; Wt 117.9 kg
[~2025-03-18 10:09] MED LIST changes: +ABILIFY5 MG PO; +METO25ER PO; +NITR.4SL SL
[2025-03-18] MEDS ORDERED: ATOR40TA PO (10:47)
[2025-03-18] MEDS ORDERED: CARV25 PO (10:47)
[2025-03-18] MEDS ORDERED: FLUT1DIS5 INH (10:48)
[2025-03-18] MEDS ORDERED: Nicoderm Cq1 EAC1 TOP (10:49)
[2025-03-18] MEDS ORDERED: Isosorbide Mono30 MG PO (10:49)
[2025-03-18] MEDS ORDERED: VALS80 PO (10:49)
[2025-03-18 11:05] LABS: BASOPHILS ABSOLUTE AUTO 0.04 K/mm3 (0.00-0.23); BASOPHILS PERCENT AUTO 0 % (0-2); EOSINOPHILS ABSOLUTE AUTO 0.09 K/mm3 (0.00-0.68); EOSINOPHILS PERCENT AUTO 1 % (0-6); Hematocrit 52.4 % (33.0-51.0); Hemoglobin 17.0 g/dL (11.5-16.0); IMMATURE GRAN ABSOLUTE AUTO 0.04 K/mm3 (0.00-0.10); IMMATURE GRAN PERCENT AUTO 0 % (0-1); LYMPHOCYTES ABSOLUTE AUTO 1.75 K/mm3 (0.84-5.20); LYMPHOCYTES PERCENT AUTO 17 % (21-46); MONOCYTES ABSOLUTE AUTO 0.75 K/mm3 (0.16-1.47); MONOCYTES PERCENT AUTO 7 % (4-13); Mean Corpuscular HGB Conc 32.4 g/dL (31.5-36.5); Mean Corpuscular Volume 89 fL (80-100); NEUTROPHILS ABSOLUTE AUTO 7.69 K/mm3 (1.96-9.15); NEUTROPHILS PERCENT AUTO 74 % (41-73); NRBC ABSOLUTE 0.00 K/mm3 (0.00-0.02); NRBC Auto 0.0 /100 WBC (0.0-0.2); Platelet Count 271 K/mm3 (150-400); RDW Coefficient Variation 15.2 % (11.7-14.2); RDW Standard Deviation 49.4 fL (35.1-46.3)
[2025-03-18 11:10] LABS: Alanine Aminotransfer (ALT/SGP 34.0 U/L (12-78); Albumin, Blood 3.3 g/dL (3.4-5.0); Albumin/Globulin Ratio 0.7 (0.8-1.8); Anion Gap 9.0 mmol/L (3-11); Aspartate Aminotrans (AST/SGOT 26.0 U/L (12-37); Bilirubin, Total 0.8 mg/dL (0.1-1.0); Blood Urea Nitrogen 19.0 mg/dL (8-24); CO2, Blood 23.0 mmol/L (21-32); Calcium, Blood 9.0 mg/dL (8.5-10.1); Chloride, Blood 106.0 mmol/L (98-108); Creatinine, Blood 1.05 mg/dL (0.40-1.00); Globulin, Blood 4.5 g/dL (2.2-4.0); Glucose, Blood 150.0 mg/dL (70-99); Potassium, Blood 4.0 mmol/L (3.5-5.5); Sodium, Blood 134.0 mmol/L (136-145); Total Protein, Blood 7.8 g/dL (6.4-8.2)
[2025-03-18] MEDS ORDERED: Ketorolac Tromethamine 30mg Vial IV ONE (11:30)
[2025-03-18 14:45] VITALS: BP 180/92
[2025-03-18] MEDS ORDERED: LIDO700A20 TOP (14:56)
[2025-03-18] MEDS ORDERED: IBUP600 PO (14:56)
== END 2025-03-18 15:10 | disposition home or self-care (01) ==
LOC: ER 10:09
PROVIDERS: Emergency Medicine
DX: R07.89 Other chest pain (principal); R06.02 Shortness of breath; I10 Essential (primary) hypertension; I48.91 Unspecified atrial fibrillation; Z88.0 Allergy status to penicillin; Z88.1 Allergy status to other antibiotic agents; Z79.899 Other long term (current) drug therapy; Z79.82 Long term (current) use of aspirin
CPT/HCPCS: 71045; 71260; 80053; 83880; 84484; 85025; 85379; 93005; 93010; 96374-59; 99285-25; J1885; Q9967